=== PATIENT | male | born 1985 | race African-American/Black ===

== ENCOUNTER 2020-11-05 03:40 | Emergency (ER) | payer SELFPAY ==
[2020-11-05] MEDS ORDERED: FLUMAZENIL INJ 0.5 MG/5 ML VIAL ONE (03:48)
[2020-11-05] MEDS ORDERED: NALOXONE HCL INJ 2 MG/2 ML DISP.SYRIN ONE ×2 (03:49)
[2020-11-05] MEDS ORDERED: NALOXONE HCL INJ/PF 0.4 MG/1 ML SDV IV ONE (04:02)
[2020-11-05] MEDS ORDERED: FLUMAZENIL INJ 0.5 MG/5 ML VIAL IV ONE (04:03)
--- NOTE | 2020-11-05 04:08 | ER Document Report ---
ED Substance Abuse / Acc. OD <TERRI MIRANDA - Last Filed: 11/07/20 09:19> - General Mode of Arrival: Medic Information source: Emergency Med Personnel TRAVEL OUTSIDE OF THE [place] IN LAST 30 DAYS: No - HPI Patient complains to provider of: Drug abuse Onset: This evening Onset/Duration: Persistent Quality of pain: Achy <VALENTE RIVAS JR - Last Filed: 11/08/20 11:52> - General Chief Complaint: Accidental Overdose Stated Complaint: OVERDOSE Time Seen by Provider: 11/05/20 03:52 Notes: 35-year-old black male arrives by EMS after they arrived at his home avoiding a lot of trash and IV needles to find patient in a narcoticly intoxicated state and were advised that patient had taken some heroin tonight. He was given Narcan intranasal by family and then was given IV Narcan by EMS prior to arri dru. Patient was uncooperative and rolling from side to side and speaking 1-2 word mumbled sentences. He was given 4 mg IV around 0 400 (VALENTE RIVAS JR) - Related Data Allergies/Adverse Reactions: acetaminophen [From Tylenol] Adverse Reaction (Verified 02/06/17 22:30) tramadol Adverse Reaction (Verified 02/06/17 22:30) Past Medical History - General Information source: Emergency Med Personnel - Social History Smoking Status: Current Every Day Smoker Cigarette use (# per day): Yes Chew tobacco use (# tins/day): No Smoking Education Provided: Yes Frequency of alcohol use: Occasional Drug Abuse: Heroin, Prescription drugs Lives with: Family Family History: None, Reviewed & Not Pertinent Patient has suicidal ideation: No Patient has homicidal ideation: No - Past Medical History Cardiac Medical History: Reports: Hx Hypertension Renal/ Medical History: Denies: Hx Peritoneal Dialysis - Immunizations Hx Diphtheria, Pertussis, Tetanus Vaccination: No <VALENTE RIVAS JR - Last Filed: 11/08/20 11:52> Review of Systems - Review of Systems Constitutional: See HPI, Weakness EENT: No symptoms reported Cardiovascular: No symptoms reported Respiratory: No symptoms reported Gastrointestinal: No symptoms reported Genitourinary: No symptoms reported Male Genitourinary: No symptoms reported Musculoskeletal: No symptoms reported Skin: No symptoms reported Hematologic/Lymphatic: No symptoms reported Neurological/Psychological: See HPI, Confusion, Weakness -: Yes All other systems reviewed and negative <VALENTE RIVAS JR - Last Filed: 11/08/20 11:52> Physical Exam - Vital signs Interpretation: Normal - General General appearance: Appears well, Alert - HEENT Head: Normocephalic, Atraumatic Eyes: Normal Pupils: Pinpoint Sinus: Normal Nasal: Normal Mouth/Lips: Normal Pharynx: Normal - Stinky smelling is the one works at [employer] Neck: Normal - Respiratory Respiratory status: No respiratory distress Chest status: Nontender Breath sounds: Normal Chest palpation: Normal - Cardiovascular Rhythm: Regular Heart sounds: Normal auscultation Murmur: No - Abdominal Inspection: Normal Distension: No distension Bowel sounds: Normal Tenderness: Nontender Organomegaly: No organomegaly - Rectal Prostate: Other - deferred - Genitourinary Scrotum: Other - deferred - Back Back: Normal, Nontender - Extremities General upper extremity: Normal inspection, Nontender, Normal color, Normal ROM, Normal temperature General lower extremity: Normal inspection, Nontender, Normal color, Normal ROM, Normal temperature, Normal weight bearing. No: Karina's sign - Neurological Cognition: Confused Orientation: Disoriented to person, Disoriented to place, Disoriented to time, D isoriented to events [place] Coma Scale Eye Opening: To Voice Rebecca Coma Scale Motor: Localizes to Pain Speech: Dysarthria Motor strength normal: LUE, RUE, LLE, RLE Sensory: Normal - Psychological Associated symptoms: Uncooperative - Skin Skin Temperature: Warm Skin Moisture: Dry Skin Color: Normal <VALENTE RIVAS JR - Last Filed: 11/08/20 11:52> - Vital signs Vitals: Temp 97.5 F 11/05/20 03:41 Course - Laboratory Results Result Diagrams: 11/05/20 03:45 11/05/20 03:45 - Radiology Results Critical Radiology Results Reviewed: No Critical Results <TERRI MIRANDA - Last Filed: 11/07/20 09:19> - Laboratory Results Result Diagrams: 11/05/20 03:45 11/05/20 03:45 Critical Laboratory Results Reviewed: Yes Attending or Supervising Physician who Reviewed Labs: VALENTE RIVAS JR <VALENTE RIVAS JR - Last Filed: 11/08/20 11:52> - Vital Signs Vital signs: Temp Pulse Resp BP Pulse Ox 97.8 F 17 170/79 H 96 11/05/20 08:00 11/05/20 08:50 11/05/20 08:50 11/05/20 08:50 - Laboratory Results Laboratory Results Interpreted: 11/05/20 11/05/20 03:45 04:00 Carbon Dioxide 31 H Glucose 111 H Calcium 10.5 H Urine Urobilinogen 2.0 H Ur Leukocyte Esterase TRACE H - EKG Interpretation by Me Additional EKG results interpreted by me: 11/05/20 07:49 Twelve-lead EKG shows normal sinus rhythm rate of 82 probable left atrial abnormality. Patient has a normal axis NH interval within normal range QRS interval normal QT interval normal interval 7 left ventricular hypertrophy noted with anterior ST elevation most likely due to LVH noted will review prior EKGs if there is any for comparison. Borderline T wave abnormalities in the inferior leads no acute ST T elevation to suggest STEMI 11/05/20 07:53 on review of medical chart there are no prior EKGs to review for comparison. (TERRI MIRANDA) Critical Care Note <VALENTE RIVAS JR - Last Filed: 11/08/20 11:52> - Critical Care Note Comments: Patient much improved and speaking to nursing staff and myself. He reports he aches all over. I advised after taking Narcan he may have the symptoms. (VALENTE RIVAS JR) Discharge <TERRI MIRANDA - Last Filed: 11/07/20 09:19> <VALENTE RIVAS JR - Last Filed: 11/08/20 11:52> - Discharge Clinical Impression: Narcotic overdose Qualifiers: Encounter type: initial encounter Injury intent: accidental or unintentional Qualified Code(s): T40.601A - Poisoning by unspecified narcotics, accidental (unintentional), initial encounter Hypertension Qualifiers: Hypertension type: unspecified Qualified Code(s): I10 - Essential (primary) hypertension Condition: Stable Disposition: HOME, SELF-CARE Additional Instructions: Follow-up with personal doctor this week; avoid using heroin or narcotics and mind altering drugs. Encourage fluids; stop doing cocaine
[2020-11-05 04:23] LABS: AMORPHOUS SEDIMENT,URINE TRACE /HPF; APPEARANCE,URINE CLOUDY; BILIRUBIN,URINE NEGATIVE (NEGATIVE); COLOR,URINE YELLOW; GLUCOSE, URINE NEGATIVE (NEGATIVE); KETONES,URINE NEGATIVE (NEGATIVE); LEUKOCYTE ESTERASE,URINE TRACE (NEGATIVE); NITRITE,URINE NEGATIVE (NEGATIVE); PROTEIN,URINE NEGATIVE (NEGATIVE); URINE SPECIFIC GRAVITY 1.016
[2020-11-05 04:45] LABS: URINE AMPHETAMINES SCREEN NEGATIVE; URINE BARBITURATES SCREEN NEGATIVE; URINE MARIJUANA (THC) SCREEN NEGATIVE; URINE METHADONE SCREEN NEGATIVE; URINE PHENCYCLIDINE SCREEN NEGATIVE
[2020-11-05 04:48] LABS: URINE BENZODIAZEPINES SCREEN UNCONFIRMED POSITIVE; URINE COCAINE SCREEN UNCONFIRMED POSITIVE
--- NOTE | 2020-11-05 05:08 | RADIOLOGY REPORT (SQ) ---
EXAM DESCRIPTION: XR CHEST 1 VIEW COMPLETED DATE/TME: 11/05/2020 04:27 CLINICAL HISTORY: 35 years, Male, overdose COMPARISON: None. NUMBER OF VIEWS: 1 TECHNIQUE: AP portable upright view of the chest was obtained at 4:19 AM. LIMITATIONS: Low lung volumes and kyphotic positioning. FINDINGS: Heart size is within normal limits. Lungs are underinflated and the left lung apex is partially obscured by the patient's chin, however the lungs are grossly clear as visualized. There is no evidence of pleural effusion or pneumothorax. No definite acute bony abnormality is seen. IMPRESSION: No acute abnormality as above. copyright 2010 [employer]- All Rights Reserved
[2020-11-05 05:33] LABS: ABSOLUTE BASOPHILS # (AUTO) 0.1 10^3/uL (0.0-0.2); ABSOLUTE EOSINOPHILS # (AUTO) 0.2 10^3/uL (0.0-0.6); ABSOLUTE LYMPHOCYTES (AUTO) 2.1 10^3/uL (0.5-4.7); ABSOLUTE MONOCYTES (AUTO) 0.7 10^3/uL (0.1-1.4); BASOPHILS % (AUTO) 0.9 % (0-2); EOSINOPHILS % (AUTO) 2.4 % (0-6); HEMATOCRIT 43.3 % (37.9-51.0); HEMOGLOBIN 14.3 g/dL (13.5-17.0); LYMPHOCYTES % (AUTO) 29.4 % (13-45); MEAN CORPUSCULAR HEMOGLOBIN 27.3 pg (27.0-33.4); MEAN CORPUSCULAR HGB CONC 33.1 g/dL (32.0-36.0); MEAN CORPUSCULAR VOLUME 83 fl (80-97); MONOCYTES % (AUTO) 10.5 % (3-13); PLATELET COUNT 242 10^3/uL (150-450); RED BLOOD COUNT 5.25 10^6/uL (4.35-5.55); RED CELL DISTRIBUTION WIDTH 13.6 % (11.5-14.0); SEGMENTED NEUTROPHILS % (AUTO) 56.8 % (42-78); TOTAL CELLS COUNTED % (AUTO) 100 %; WHITE BLOOD COUNT 7.1 10^3/uL (4.0-10.5)
[2020-11-05 05:42] LABS: ALBUMIN 4.3 g/dL (3.5-5.0); ALKALINE PHOSPHATASE 74 U/L (38-126); ANION GAP 5 (5-19); ASPARTATE AMINO TRANSFERASE 39 U/L (17-59); BILIRUBIN,DIRECT 0.2 mg/dL (0.0-0.4); BILIRUBIN,TOTAL 0.4 mg/dL (0.2-1.3); BLOOD UREA NITROGEN 17 mg/dL (7-20); CALCIUM 10.5 mg/dL (8.4-10.2); CARBON DIOXIDE 31 mmol/L (22-30); CHLORIDE 103 mmol/L (98-107); GLUCOSE 111 mg/dL (75-110); POTASSIUM 4.2 mmol/L (3.6-5.0); TOTAL PROTEIN 7.1 g/dL (6.3-8.2)
[2020-11-05 08:54] VITALS: BP 170/79
--- NOTE | 2020-11-05 13:19 | EKG REPORT ---
SEVERITY:- ABNORMAL ECG - SINUS RHYTHM PROBABLE LEFT ATRIAL ABNORMALITY LEFT VENTRICULAR HYPERTROPHY BORDERLINE T ABNORMALITIES, INFERIOR LEADS ANTERIOR ST ELEVATION, PROBABLY DUE TO LVH : Confirmed by: Pedro Armenta 05-Nov-2020 13:18:05
== END 2020-11-05 12:09 | disposition home or self-care (01) ==
LOC: ER 03:40
DX: T40.601A Poisoning by unspecified narcotics, accidental (unintentional), initial encounter (principal); I10 Essential (primary) hypertension; R53.1 Weakness; F17.210 Nicotine dependence, cigarettes, uncomplicated
CPT/HCPCS: 93005; 99285; 96374; 36415; 85025; 80053; 81001; 80307; 71045; 93010; J2310